=== PATIENT | female | born 1960 | race Caucasian/White ===

== ENCOUNTER → 2023-12-10 10:27 | Outpatient (BNVA) | payer MEDICARE, OTHER, SELFPAY | PROVIDERS: PCP Family Medicine; Visit Provider Nurse Practitioner Family | DX: Z20.822 Contact with and (suspected) exposure to COVID-19 (principal) | CPT/HCPCS: 87426 ==

== ENCOUNTER → 2024-03-23 11:30 | Outpatient (BNVA) | payer MEDICARE, OTHER, SELFPAY | PROVIDERS: PCP Family Medicine; Visit Provider Nurse Practitioner | DX: R30.0 Dysuria (principal) | CPT/HCPCS: 81000; 87086 ==

== ENCOUNTER → 2024-04-20 14:30 | Outpatient (BNVA) | payer MEDICARE, OTHER, SELFPAY | PROVIDERS: PCP Family Medicine; Visit Provider Nurse Practitioner | DX: R30.0 Dysuria (principal) | CPT/HCPCS: 81000; 87086 ==

== ENCOUNTER → 2024-05-11 14:54 | Outpatient (BNVA) | payer MEDICARE, OTHER, SELFPAY | PROVIDERS: PCP Family Medicine; Visit Provider Family Medicine | DX: I10 Essential (primary) hypertension (principal); E78.01 Familial hypercholesterolemia; R73.03 Prediabetes; E03.9 Hypothyroidism, unspecified | CPT/HCPCS: 80053; 80061; 83036; 84439; 84443; 85025 ==

== ENCOUNTER → 2024-05-14 09:51 | Outpatient (BNVA) | payer MEDICARE, OTHER, SELFPAY | PROVIDERS: PCP Family Medicine; Referring Provider Family Medicine; Visit Provider Surgery | DX: K21.9 Gastro-esophageal reflux disease without esophagitis (principal); Z12.11 Encounter for screening for malignant neoplasm of colon | CPT/HCPCS: 99204 ==

== ENCOUNTER 2024-05-17 06:07 | Emergency (ER) | payer MEDICARE, OTHER, SELFPAY ==
[2024-05-17 06:30] VITALS: BP 133/72; PULSE 76; RESP 16; TEMP 36.4; O2SAT 99; BMI 31.5
[2024-05-17] MEDS: predniSONE 20 mg Tablet 60 MG PO (07:25)
--- NOTE | 2024-05-17 10:01 | W.ED.ALLEREA ---
HPI - Allergic Reaction General: Chief complaint: Allergic Reaction Stated complaint: Allergic Reaction Time Seen by Provider: 05/17/24 06:49 History of Present Illness: HPI narrative: This patient is a 63 year old presenting with a rash and itching that started a few days ago. She was seen at [facility] ED and started on oral medications and also got a steroid shot. She has not really improved (her says she had some temporary relief from the steroid shot) and came here for help as the itching is unbearable. She has hives all over her body. She has not had a reaction like this in the past - and the only new medicine or exposure that she can think of is that she started Humira 6 weeks ago. She has not had any mucosal involvement and has not had any wheezing, facial or throat swelling or nauses and vomiting. Related Data Home Medications ?Medication ?Instructions ?Recorded ?Confirmed metformin 500 mg tablet 1,500 mg PO BID 11/22/23 05/17/24 progesterone micronized 100 mg 100 mg PO QAM 04/20/24 05/17/24 capsule famotidine 20 mg tablet 20 mg PO Q12H 05/17/24 05/17/24 hydroxyzine HCl 25 mg tablet 25 - 50 mg PO Q6H PRN Itching 05/17/24 05/17/24 loratadine 10 mg tablet 10 mg PO DAILY PRN Allergic 05/17/24 05/17/24 Reaction Previous Rx's ?Medication ?Instructions ?Recorded benzonatate 100 mg capsule 100 mg PO TID PRN cough #90 caps 12/10/23 fexofenadine 60 mg-pseudoephedrine 1 tab PO Q12H PRN nasal congestion 05/11/24 ER 120 mg tablet,ext.release,12 hr #60 tabs (Chana-D 12 Hour) levothyroxine 25 mcg tablet 25 mcg PO DAILY #90 tabs 05/12/24 losartan 25 mg tablet 25 mg PO DAILY #90 tabs 05/12/24 rosuvastatin 10 mg tablet 10 mg PO DAILY #90 tabs 05/12/24 prednisone 10 mg tablets in a dose See Rx Instructions PO .COMPLEX 05/17/24 pack #21 ea Allergies Allergy/AdvReac Type Severity Reaction Status Date / Time doxycycline Allergy Mild ADR-Halluci Verified 05/11/24 13:30 nating Penicillins Allergy Mild ADR/ALGY-Pa Verified 05/11/24 13:30 lpitations Sulfa (Sulfonamide Allergy Mild ALGY-Rash Verified 05/11/24 13:30 Antibiotics) bupropion (From Wellbutrin) Allergy ADR-Chest Verified 05/11/24 13:30 Pain pantoprazole (From Protonix) Allergy ALGY-Hives Verified 05/17/24 08:32 PFSH ED PFSH: Medical History (Updated 05/21/24 @ 13:58 by Radha Goodman MD) Age related osteoporosis DEXA 05.21.24 Postmenopausal Screening for colorectal cancer Prediabetes Encounter for screening for malignant neoplasm of lung last CT .07.02 Hypothyroidism (acquired) Cholelithiasis asymptomatic; seen on CT 10.13.23 Chronic eustachian salpingitis of both ears Allergy to pollen Stage 2 moderate chronic obstructive pulmonary disease by Global Initiative for Chronic Obstructive Lung Disease classification GERD (gastroesophageal reflux disease) Discoid lupus erythematosus sees Dr. Thornton Familial hypercholesteremia Hypertension Surgical History Hx of neck surgery complication after T tubes 11/01 caused subQ emphysema--had to have R anterior neck exploration and drain Hx of tympanostomy tubes multiple PE tubes and T tubes Hx of colonoscopy 4.. normal; repeat 10 yrs Hx of cataract extraction OU History of surgery on right wrist Hx of tubal ligation Hx of section X 1 Family History Father Heart disease Grandmother Breast cancer Brother Heart disease Sister Heart disease Social History Smoking and tobacco/nicotine status: never used tobacco/nicotine Quit status (tobacco/nicotine): has quit using Year quit tobacco: 2019 Former quit date comment: 1ppd; started age 13 and quit 59; 46pk yr Second hand smoke exposure: No Alcohol intake: current Alcohol type: beer and wine Substance/Drug Use: never Adopted: No Caregiver/support person: No Lives independently: Yes Household members: spouse Marital status: Number of children: 2 Current occupational status: other 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 [employer] Do you think of yourself as: Straight/Heterosexual Current gender identity: Female Physical Exam Const: COMMON NORMALS: no acute distress, patient oriented x3, no limitations and alert GENERAL APPEARANCE: cooperative and comfortable HENMT: HEAD & SCALP: normal to inspection FACE & SINUS: normal facial exam Eye: GENERAL EYE: appearance normal, both eyes and all related structures Neck/C-Spine: COMMON NORMALS: supple, no meningeal signs and no JVD Chest: COMMONS NORMALS: normal inspection of the chest Resp: COMMON NORMALS: normal respiratory effort, No use of accessory muscles and clear to auscultation bilaterally AUSCULTATION: clear to auscultation bilaterally Cardio: COMMON NORMALS: no JVD, regular rate, regular rhythm and No murmurs present (Cardio) RATE: regular rate RHYTHM: regular rhythm GI: COMMON NORMALS: Normal to inspection, nondistended, normoactive bowel sounds present, Soft to palpation and non-tender INSPECTION: Yes normal to inspection AUSCULTATION: Yes normoactive bowel sounds PALPATION: Yes Soft to palpation Back/Pelvis: COMMON NORMALS: thoracic and lumbar spine normal to inspection Extremity: COMMON NORMALS: normal to inspection Neuro: COMMON NORMALS: patient oriented x3, moves all extremities, no focal motor deficits and no sensory deficits noted SENSORIUM/ORIENTATION: Yes alert MENINGEAL SIGNS: Yes no meningeal signs Psych: COMMON NORMALS: mental status grossly normal, cooperative and normal affect Skin: COMMON NORMALS: turgor normal NARRATIVE SKIN EXAM: diffuse urticarial rash GENERAL SKIN EXAM: turgor normal Course Vital Signs: Vital signs: Vital Signs Temperature 97.5 F L 05/17/24 06:30 Pulse Rate 82 05/17/24 10:30 Respiratory Rate 16 05/17/24 06:30 Blood Pressure 133/72 05/17/24 06:30 Pulse Oximetry 97 05/17/24 10:30 Oxygen Delivery Me thod Room Air 05/17/24 06:30 MDM - Allergic Reaction Medical Decision Making Urticaria - most likely idiopathic and not related to Humira - although SJS can occur with that medication. Currently this does not resemble SJS at all but I did discuss things to watch for that would indicate a more serious issue. Steroids for itching in the ED and a taper at home. No radiology studies performed this visit Discharge Plan Discharge Patient Disposition: Home Clinical Impression: Urticaria Condition: Stable Prescriptions: New prednisone 10 mg tablets,dose pack See Rx Instructions .ROUTE .COMPLEX Qty: 21 0RF Rx Instructions: orally per package directions No Action metformin 500 mg tablet 1,500 mg PO BID Patient Comments: Take two tablets once daily in the morning - Take one tablet once daily at night. progesterone micronized 100 mg capsule 100 mg PO QAM Rx Instructions: off 7 days; repeat cycle benzonatate 100 mg capsule 100 mg PO TID PRN (Reason: cough) Qty: 90 0RF fexofenadine-pseudoephedrine [Chana-D 12 Hour] 60-120 mg tablet extended release 12 hr 1 tab PO Q12H PRN (Reason: nasal congestion) Qty: 60 3RF levothyroxine 25 mcg tablet 25 mcg PO DAILY Qty: 90 3RF losartan 25 mg tablet 25 mg PO DAILY Qty: 90 3RF rosuvastatin 10 mg tablet 10 mg PO DAILY Qty: 90 3RF famotidine 20 mg tablet 20 mg PO Q12H hydroxyzine HCl 25 mg tablet 25 - 50 mg PO Q6H PRN (Reason: Itching) loratadine 10 mg tablet 10 mg PO DAILY PRN (Reason: Allergic Reaction) Discharge Orders: Discharge ED (Routine); Ordered 05/17/24 Ordered By: Sariah Pierre Referrals: Radha Goodman MD [Primary Care Provider] - Patient Instructions: Opioid Safety, Pain Management Activity Restrictions/Additional Instructions: Prednisone will cause your blood sugar to increase - try to monitor your carbohydrate closely and monitor your blood sugar. 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
[2024-05-17 10:30] VITALS: PULSE 82; O2SAT 97
== END 2024-05-17 10:31 | disposition home or self-care (01) ==
PROVIDERS: Emergency Provider Emergency Medicine; PCP Family Medicine
DX: L50.9 Urticaria, unspecified (principal); Z79.84 Long term (current) use of oral hypoglycemic drugs; Z87.891 Personal history of nicotine dependence; I10 Essential (primary) hypertension
CPT/HCPCS: 99283; J7512

== ENCOUNTER 2024-05-21 12:53 | Outpatient (CLI) | payer MEDICARE, OTHER, SELFPAY ==
--- NOTE | 2024-05-21 13:00 | XR_ITS ---
WS: [id number] SCREENING DEXA SCAN [facility] CLINICAL INFORMATION: postmenopausal COMPARISON: None. FINDINGS: The L1-L4 bone mineral density measures 1.076 g/cm2. This corresponds to a T score score of -0.9 and Z score of 0.5. Left femoral neck bone mineral density measures 0.682 g/cm2. This corresponds to a T score of -2.6 and Z score of -1.5. Right femoral neck bone mineral density measures 0.695 g/cm2. This corresponds to a T score -2.5of and Z score of -1.4. Mean femoral neck bone mineral density measures 0.689 g/cm2. This corresponds to a T score of -2.5 and Z score of -1.4. XR/XR DEXA axial skeleton* 52284 IMPRESSION: Normal bone mineralization lumbar spine. Osteoporosis femoral necks Patient's FRAX calculated 10 year probability for major osteoporotic fracture i s 23.3% and osteoporotic hip fracture is 6.0%.
== END 2024-05-21 12:54 | disposition home or self-care (01) ==
PROVIDERS: PCP Family Medicine; Visit Provider Family Medicine
DX: Z78.0 Asymptomatic menopausal state (principal); M81.0 Age-related osteoporosis without current pathological fracture
CPT/HCPCS: 77080

== ENCOUNTER → 2024-05-28 11:17 | Outpatient (BNVA) | payer MEDICARE, OTHER, SELFPAY | PROVIDERS: PCP Family Medicine; Visit Provider Student in an Organized Health Care Education/Training Program | DX: Z12.11 Encounter for screening for malignant neoplasm of colon (principal) | CPT/HCPCS: 99024; 99204 ==

== ENCOUNTER 2024-06-16 06:26 | Day surgery (SDC) | payer MEDICARE, OTHER, SELFPAY ==
[2024-06-16 06:46] VITALS: BP 136/65; PULSE 71; RESP 17; TEMP 36.4; O2SAT 95; BMI 31.5
[2024-06-16] MEDS: sodium chloride 0.9% 1,000 ML 15 ML IV (06:54)
[2024-06-16 06:58] LABS: Glucose Point of Care 147 mg/dL (70-110)
--- NOTE | 2024-06-16 07:06 | W.PM.OPSUD ---
Surgery/Procedure H&P Update DATE OF PROCEDURE: June 16, 2024 DATE H&P PERFORMED: 05/28/24 H&P UPDATE INFORMATION: I have reviewed H&P completed within last 30 days, I have examined patient prior to procedure and No changes to prior documentation PLANNED PROCEDURE: Operation Date: 06/16/24 07:15 Proposed Procedures p Colonoscopy 19375 G0121 Z12.11(Not Applicable) - Vin Vanegas MD
--- NOTE | 2024-06-16 07:12 | ANES.PREANE2 ---
Pre-Anesthetic Assessment Height/Weight: Height 1.5 m Weight 70.76 kg Temp Pulse Resp BP Pulse Ox O2 Del Method 97.6 F 71 17 136/65 95 Room Air 06/16/24 06:46 06/16/24 06:46 06/16/24 06:46 06/16/24 06:46 06/16/24 06:46 06/16/24 06:46 Preop Diagnosis: Screening Operation Date: 06/16/24 07:15 Proposed Procedures p Colonoscopy 59983 G0121 Z12.11(Not Applicable) - Vin Vanegas MD Was Beta Anatoly taken within 24 hours: N/A Was Clonidine taken within 24 hours: N/A Last intake: Intake Last Liquid Date 06/15/24 Last Liquid Time 21:30 Last Solid Date 06/14/24 Last Solid Time 18:00 Social No alcohol and No tobacco Exam alert, oriented x 3, clear to auscultation bilaterally and regular rate & rhythm Airway Submandibular: within normal limits Cervical ROM: within normal limits Mallampati: Class II Dentition: full (Perm bridge) Pulmonary Chronic Obstructive Pulmonary Disease CV/HEM Hypertension None reported Hepatic None reported GI Gastroesophageal Reflux Disease Metabolic Thyroid Disease [facility] [place] Lupus Neuropsych None reported Anesthetic Plan ASA status: 3 Anesthesia: Anesthesia Evaluation and MAC Risk of > 500 ml blood loss (7ml/kg in children): No Medications/Allergies Home Medications ?Medication ?Instructions ?Recorded ?Confirmed ?Last Taken ?Type metformin 500 mg tablet 1,500 mg PO BID 11/22/23 06/16/24 06/14/24 History benzonatate 100 mg capsule 100 mg PO TID PRN cough #90 caps 12/10/23 06/16/24 06/10/24 Rx progesterone micronized 100 mg 100 mg PO .EVENING 04/20/24 06/16/24 06/14/24 History capsule fexofenadine 60 mg-pseudoephedrine 1 tab PO Q12H PRN nasal congestion 05/11/24 06/16/24 06/10/24 Rx ER 120 mg tablet,ext.release,12 hr #60 tabs (Chana-D 12 Hour) levothyroxine 25 mcg tablet 25 mcg PO DAILY #90 tabs 05/12/24 06/16/24 06/14/24 Rx losartan 25 mg tablet 25 mg PO DAILY #90 tabs 05/12/24 06/16/24 06/15/24 Rx rosuvastatin 10 mg tablet 10 mg PO DAILY #90 tabs 05/12/24 06/16/24 06/14/24 Rx ascorbic acid (vitamin C) 1,000 mg 1,000 mg PO DAILY 06/10/24 06/16/24 06/10/24 History tablet,extended release (Vitamin C ER) cyanocobalamin (vitamin B-12) 1,000 mcg PO DAILY 06/10/24 06/16/24 06/14/24 History 1,000 mcg tablet (Vitamin B-12) magnesium glycinate 240 mg PO DAILY 06/10/24 06/16/24 06/14/24 History prednisone 10 mg tablets in a dose See Rx Instructions .Route 06/10/24 06/16/24 06/14/24 History pack .COMPLEX PRN Outbreak vitamin D3 250 mcg (10,000 1 cap PO DAILY 06/10/24 06/16/24 06/14/24 History unit)-vitamin K2 45 mcg capsule zinc 25 mg tablet 25 mg PO DAILY 06/10/24 06/16/24 06/14/24 History Allergies Allergy/AdvReac Type Severity Reaction Status Date / Time doxycycline Allergy Mild ADR-Halluci Verified 06/16/24 06:42 nating Penicillins Allergy Mild ADR/ALGY-Pa Verified 06/16/24 06:42 lpitations Sulfa (Sulfonamide Allergy Mild ALGY-Rash Verified 06/16/24 06:42 Antibiotics) bupropion (From Wellbutrin) Allergy ADR-Chest Verified 06/16/24 06:42 Pain meperidine (From Demerol) Allergy ALGY-Hives Verified 06/16/24 06:42 pantoprazole (From Protonix) Allergy ALGY-Hives Verified 06/16/24 06:42 Current Medications Generic Name Dose Route Start Last Admin Trade Name Freq PRN Reason Stop Dose Admin Sodium Chloride 1,000 mls @ 15 mls/hr 06/16/24 06:32 06/16/24 06:54 Sodium Chloride 0.9% IV 06/17/24 06:31 15 mls/hr .Q24H PRN Administration COLONOSCOPY FLUIDS PFSH Anesthesia Medical History Age related osteoporosis DEXA 3.13.25 Postmenopausal Screening for colorectal cancer Prediabetes Encounter for screening for malignant neoplasm of lung last CT 10.13.23 Hypothyroidism (acquired) Cholelithiasis asymptomatic; seen on CT 10.13.23 Chronic eustachian salpingitis of both ears Allergy to pollen Stage 2 moderate chronic obstructive pulmonary disease by Global Initiative for Chronic Obstructive Lung Disease classification GERD (gastroesophageal reflux disease) Discoid lupus erythematosus sees Dr. Thornton Familial hypercholesteremia Hypertension Surgical History Hx of neck surgery complication after T tubes 11/01 caused subQ emphysema--had to have R anterior neck exploration and drain Hx of tympanostomy tubes multiple PE tubes and T tubes Hx of colonoscopy 15 normal; repeat 10 yrs Hx of cataract extraction OU History of surgery on right wrist Hx of tubal ligation Hx of section X 1 Family History Father Heart disease Grandmother Breast cancer Brother Heart disease Sister Heart disease Social History Smoking and tobacco/nicotine status: never used tobacco/nicotine Quit status (tobacco/nicotine): has quit using Year quit tobacco: 2020 Former quit date comment: 1ppd; started age 13 and quit 59; 46pk yr Second hand smoke exposure: No Alcohol intake: current Alcohol type: beer and wine Substance/Drug Use: never Adopted: No Caregiver/support person: No Lives independently: Yes Household members: spouse Marital status: Number of children: 2 Current occupational status: other 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
[2024-06-16 07:31] VITALS: BP 176/81; PULSE 71; RESP 16; TEMP 36.2; O2SAT 95
[2024-06-16 07:41] VITALS: BP 168/79; PULSE 73; RESP 16; O2SAT 97
[2024-06-16 07:51] VITALS: BP 157/80; PULSE 71; RESP 16; O2SAT 98
--- NOTE | 2024-06-16 08:01 | ANE.PACU2 ---
Inpatient post-anesthesia follow up: Airway intact: Yes Vital signs: Temperature 97.2 F Pulse Rate 71 Respiratory Rate 16 Blood Pressure 157/80 Pulse Oximetry 98 Oxygen Delivery Me thod Room Air Oxygen Flow Rate Fraction of Inspir ed Oxygen Hydration adequate: Yes Nausea and vomiting: No Pain level: 1 Mental status: Baseline
== END 2024-06-16 08:02 | disposition home or self-care (01) ==
PROVIDERS: PCP Family Medicine; Visit Provider Student in an Organized Health Care Education/Training Program
PROC: 0DJD8ZZ Inspection of Lower Intestinal Tract, Via Natural or Artificial Opening Endoscopic (ICD-10-PCS; CPT 45378; principal; 2024-06-16 07:15)
DX: Z12.11 Encounter for screening for malignant neoplasm of colon (principal); K21.9 Gastro-esophageal reflux disease without esophagitis; J44.9 Chronic obstructive pulmonary disease, unspecified; E03.9 Hypothyroidism, unspecified; I10 Essential (primary) hypertension; L93.0 Discoid lupus erythematosus; R73.03 Prediabetes; Z79.84 Long term (current) use of oral hypoglycemic drugs; Z79.890 Hormone replacement therapy; Z79.899 Other long term (current) drug therapy; Z88.8 Allergy status to other drugs, medicaments and biological substances; Z88.0 Allergy status to penicillin; Z88.2 Allergy status to sulfonamides; Z87.891 Personal history of nicotine dependence
CPT/HCPCS: 36416; 82962; G0121; J2704; J3490; J7030

== ENCOUNTER 2024-10-13 13:48 | Outpatient (CLI) | payer MEDICARE, OTHER, SELFPAY ==
--- NOTE | 2024-10-13 14:00 | CT_ITS ---
WS: [id number] LDCT LUNG CANCER SCREENING HISTORY: screening for lung CA; marc dep in remission; 46pk yr; TECHNIQUE: Axial imaging performed from the apices to 1 cm below the costophrenic angles. Coronal and sagittal reformats are submitted with axial MIP series. All CT scans at [facility] use at least one of these dose optimization techniques: automated exposure control; mA and/or kV adjustment per patient size (includes targeted exams where dose is matched to clinical indication); or iterative reconstruction. DLP: 53.22 mGy.cm DIvol: Mean CTDIvol: 1.00 (mGy) COMPARISON: 10/13/2023 Diagnostic quality: Satisfactory Lungs: Biapical pleural thickening and scarring with mild progression since 2022 and 2023. Micronodule LEFT upper lobe. No mass or endobronchial lesions. Heart: Normal size heart with no pericardial effusion.. Moderate scattered coronary artery calcifications. Other findings: Mild atherosclerosis aorta. Normal size pulmonary artery. No adenopathy. Contracted gallbladder with cholelithiasis. No adjacent inflammation. No adrenal mass. Mild thoracic spondylosis. CT/CT lung screening [id number] IMPRESSION: LUNG-RADS: 2-Benign Appearance or Behavior FOLLOW UP: 12 Month: Continue annual screening with LDCT OTHER FINDINGS (S MODIFIER): None.
== END 2024-10-13 13:49 | disposition home or self-care (01) ==
LOC: RAD 13:49
PROVIDERS: PCP Family Medicine; Visit Provider Family Medicine
DX: Z12.2 Encounter for screening for malignant neoplasm of respiratory organs (principal); F17.211 Nicotine dependence, cigarettes, in remission; I25.10 Atherosclerotic heart disease of native coronary artery without angina pectoris; I70.0 Atherosclerosis of aorta; K80.20 Calculus of gallbladder without cholecystitis without obstruction; M47.814 Spondylosis without myelopathy or radiculopathy, thoracic region
CPT/HCPCS: 71271

== ENCOUNTER → 2025-02-13 10:33 | Outpatient (BNVA) | payer MEDICARE, OTHER, SELFPAY | PROVIDERS: PCP Family Medicine; Visit Provider Registered Nurse Neonatal Intensive Care | DX: J02.9 Acute pharyngitis, unspecified (principal) | CPT/HCPCS: 87880 ==